=== PATIENT | male | born 1995 | race Caucasian/White ===

== ENCOUNTER 2020-10-14 10:14 | Emergency (ER) | payer BC, OTHER ==
[~2020-10-14] VITALS: Ht 170.2 cm; Wt 63.5 kg
[~2020-10-14 10:14] MED LIST: FLONASE 0.05%50 MCG NASAL; IBUPROFEN 600600 M1 PO; SINGULAIR 10 MG10 M1 PO
[2020-10-14] MEDS ORDERED: PREDNISONE 20 M20 MG PO (10:42)
[2020-10-14 11:02] VITALS: BP 129/68
== END 2020-10-14 11:02 | disposition home or self-care (01) ==
LOC: ER 10:14
DX: L23.7 Allergic contact dermatitis due to plants, except food (principal); Z88.0 Allergy status to penicillin